=== PATIENT | female | born 1935 | race African-American/Black ===

== ENCOUNTER 2020-08-30 06:48 | Inpatient (IN) | payer MEDICARE, MEDICAID ==
[~2020-08-30] VITALS: Ht 154.9 cm; Wt 56.2 kg
[~2020-08-30 06:48] MED LIST: DEXT15DR5 EACHEYE; METO25TA6 PO; SIMV-43 PO; WARF2.5T83 PO
[2020-08-30 09:52] LABS: BASOPHILS % 0.5 % (0.0-2.0); EOSINOPHILS % 0.4 % (0.0-5.0); HEMATOCRIT. 44.7 % (36.0-48.0); HEMOGLOBIN. 14.8 g/dL (12.0-16.0); LYMPHOCYTES % 11.3 % (20.0-50.0); MEAN CORPUSCULAR VOLUME 84.6 fL (81.0-99.0); MEAN PLATELET VOLUME 9.3 fl (7.4-10.4); MONOCYTES % 5.3 % (2.0-8.0); NEUTROPHILS % 82.5 % (40.0-76.0); PLATELET 217 x1000/uL (130-400); RED BLOOD CELL COUNT 5.29 mill/uL (4.2-5.4); RED CELL DISTRIBUTION WIDTH 15.6 % (11.6-14.6)
[2020-08-30 09:57] LABS: CHLORIDE 96 mEq/L (98-107)
[2020-08-30] MEDS ORDERED: CEFTRIAXONE 1 G PREMIX 50 ML IV ONE (10:15)
[2020-08-30] MEDS ORDERED: SODIUM CHLORIDE 0.9% 1,000 ML IV ONE (10:15)
[2020-08-30] MEDS ORDERED: AZITHROMYCIN 500 MG in DEXT 5% WATER 250 ML IV ONE (10:15)
[2020-08-30] MEDS ORDERED: NITROGLYCERIN OINT 1GM/INCH UDPKT TD ONE (11:00)
[2020-08-30] MEDS ORDERED: FUROSEMIDE 40MG/4ML VIAL IV ONE (11:00)
[2020-08-30] MEDS ORDERED: ACETAMINOPHEN 325MG TABLET PO PRN (13:00)
[2020-08-30] MEDS ORDERED: IPRATROPIUM/ALBUTEROL 0.5-3(2.5)MG/3ML NEB NEB PRN (13:00)
[2020-08-30] MEDS ORDERED: CEFTRIAXONE 1 G PREMIX 50 ML IV SCH (13:00)
[2020-08-30] MEDS ORDERED: DOCUSATE SODIUM 100MG CAPSULE PO PRN (13:00)
[2020-08-30] MEDS ORDERED: CLONIDINE 0.1MG TABLET PO PRN (13:00)
[2020-08-30] MEDS ORDERED: DIPHENHYDRAMINE 50MG/ML VIAL IV PRN (13:00)
[2020-08-30] MEDS ORDERED: NA PHOS,M-B/NA PHOS,DI-BA ENEMA 118ML PR PRN (13:00)
[2020-08-30] MEDS ORDERED: GUAIFENESIN 200MG/10ML SUGAR FREE UDC PO PRN (13:00)
[2020-08-30] MEDS ORDERED: MEDICATION NOT ON FORMULARY EA (Dextran 70/Hypromellose (Artificial Tears Eye Drops) 1 D EACHEYE SCH (13:00)
[2020-08-30] MEDS ORDERED: ONDANSETRON HCL 4MG/2ML INJ IV PRN (13:00)
[2020-08-30] MEDS ORDERED: ACETAMINOPHEN 650MG SUPP PR PRN (13:00)
[2020-08-30] MEDS ORDERED: LORAZEPAM 0.5MG TABLET PO PRN (13:00)
[2020-08-30] MEDS ORDERED: HYDROCODONE/ACETAMINOPHEN 5/325MG TABLET PO PRN (13:00)
[2020-08-30 13:41] LABS: BG BASE EXCESS 2.1 mmol/L (-2.0-2.0); BG CARBOXYHEMOGLOBIN 0.5 % (0.5-1.5); BG DEOXYHEMOGLOBIN 3.5 % (0.0-5.0); BG FRACTION INSPIRED OXYGEN 28; BG HCO3 ACT 28.5 mmol/L (22.0-26.0); BG METHEMOGLOBIN 0.3 % (0.0-1.5); BG OXYGEN SATURATION 96.5 % (92.0-98.5); BG OXYHEMOGLOBIN 95.7 % (94.0-97.0); BG PH 7.357 (7.350-7.450); BG PO2 85.3 mmHg (75.0-100.0); BG SAMPLE SITE RIGHT RADIAL; BG TOTAL HEMOGLOBIN 12.7 g/dL (12.0-18.0); BG VENT MODE NASAL CANNULA
[2020-08-30] MEDS ORDERED: AZITHROMYCIN 500 MG in DEXT 5% WATER 250 ML IV SCH (14:00)
[2020-08-30] MEDS: METOPROLOL TARTRATE 25MG TABLET PO SCH (14:38)
[2020-08-30] MEDS: FAMOTIDINE 20MG/2ML VIAL IV SCH (14:52)
[2020-08-30 15:52] LABS: D-DIMER 0.98 mg/L FEU (<0.50); INR 3.5; PROTHROMBIN TIME 34.1 sec (9.6-11.0)
[2020-08-30 16:00] VITALS: BP 145/83
[2020-08-30 16:59] VITALS: BP_SYST 145; BP_SYST 91; BP_DIAS 58; BP_DIAS 83
[2020-08-30] MEDS: POLYVINYL ALCOHOL OPHTH DROPS 15ML EACHEYE SCH ×2 (17:16→21:14)
[2020-08-30 18:00] VITALS: BP 134/64
[2020-08-30 20:08] VITALS: BP 142/75
[2020-08-30 22:08] VITALS: BP 126/67
[2020-08-30 22:39] LABS: CLARITY URINE CLEAR (CLEAR); COLOR URINE YELLOW (YELLOW); KETONES URINE NEGATIVE (NEGATIVE); LEUKOCYTE ESTERASE URINE TRACE (NEGATIVE); NITRITE URINE NEGATIVE (NEGATIVE); OCCULT BLOOD URINE 1+ (NEGATIVE); PROTEIN URINE NEGATIVE (NEGATIVE); UROBILINOGEN URINE 0.2 E.U./dL (0.2-1.0)
[2020-08-31] VITALS (8 sets, daily range): BP systolic 112–143; BP diastolic 58–96
[2020-08-31 00:51] LABS: CREATINE KINASE MB FRACTION 4.4 ng/mL (0.5-3.6)
[2020-08-31] MEDS: IPRATROPIUM/ALBUTEROL 0.5-3(2.5)MG/3ML NEB HHN SCH ×3 (01:47→20:59)
[2020-08-31 06:34] LABS: BASOPHILS % 0.6 % (0.0-2.0); EOSINOPHILS % 2.1 % (0.0-5.0); HEMATOCRIT. 33.8 % (36.0-48.0); HEMOGLOBIN. 11.2 g/dL (12.0-16.0); INR 3.1; LYMPHOCYTES % 19.8 % (20.0-50.0); MEAN CORPUSCULAR HEMOGLOBIN 27.8 pg (28.0-32.0); MEAN CORPUSCULAR VOLUME 84.1 fL (81.0-99.0); MEAN PLATELET VOLUME 8.8 fl (7.4-10.4); MONOCYTES % 12.4 % (2.0-8.0); NEUTROPHILS % 65.1 % (40.0-76.0); PLATELET 202 x1000/uL (130-400); PROTHROMBIN TIME 30.7 sec (9.6-11.0); RED BLOOD CELL COUNT 4.02 mill/uL (4.2-5.4); RED CELL DISTRIBUTION WIDTH 14.8 % (11.6-14.6)
[2020-08-31 07:17] LABS: CHLORIDE 96 mEq/L (98-107)
[2020-08-31 07:29] LABS: LDL CHOLESTEROL 49 mg/dL (5-100)
[2020-08-31 07:33] LABS: T4 FREE 1.41 ng/dL (0.76-1.46)
[2020-08-31 07:34] LABS: HDL CHOLESTEROL 60 mg/dL (40-59)
[2020-08-31] MEDS ORDERED: MEDICATION NOT ON FORMULARY EA (Simvastatin 20 MG) PO SCH (09:00)
[2020-08-31] MEDS: POLYVINYL ALCOHOL OPHTH DROPS 15ML EACHEYE SCH ×4 (09:14→20:32)
[2020-08-31] MEDS: FAMOTIDINE 20MG/2ML VIAL IV SCH (09:14)
[2020-08-31] MEDS: METOPROLOL TARTRATE 25MG TABLET PO SCH (09:14)
[2020-08-31] MEDS: ATORVASTATIN CALCIUM 10MG TABLET PO SCH (09:14)
[2020-08-31] MEDS: ASPIRIN 81MG EC TABLET PO SCH (09:14)
[2020-08-31] MEDS ORDERED: FUROSEMIDE 20MG/2ML VIAL IVP NR (09:45)
[2020-08-31] MEDS ORDERED: LIDOCAINE HCL 1% 20ML VIAL (Pyxis) INJ ONE (11:05)
[2020-08-31] MEDS ORDERED: SODIUM BICARBONATE 4% (2.4MEQ) 5ML VIAL IV ONE (11:05)
[2020-08-31] MEDS: AZITHROMYCIN 500 MG in DEXT 5% WATER 250 ML IV SCH (13:25)
[2020-08-31] MEDS ORDERED: IOHEXOL-350 100 ML BOTTLE ONE (14:00)
[2020-08-31 14:58] LABS: BG BASE EXCESS 0.9 mmol/L (-2.0-2.0); BG CARBOXYHEMOGLOBIN 0.3 % (0.5-1.5); BG HCO3 ACT 26.8 mmol/L (22.0-26.0); BG METHEMOGLOBIN 0.3 % (0.0-1.5); BG OXYHEMOGLOBIN 96.4 % (94.0-97.0); BG PCO2 48.6 mmHg (35.0-45.0); BG SAMPLE SITE RIGHT RADIAL; BG VENT MODE NASAL CANNULA
[2020-08-31] MEDS ORDERED: FUROSEMIDE 40MG/4ML VIAL IVP NR ×2 (16:15→19:00)
[2020-08-31 16:22] LABS: CREATINE KINASE MB FRACTION 4.6 ng/mL (0.5-3.6)
[2020-08-31] MEDS: CEFTRIAXONE 1,000 MG in DEXTROSE 5% WATER 50 ML IV SCH (16:24)
[2020-08-31] MEDS: METHYLPREDNISOLONE SOD SUCC 40 MG/ML VIAL IV SCH ×2 (16:24→21:28)
[2020-08-31] MEDS: MAGNESIUM/ALUMINUM HYDROXIDE/SIMETHICONE 30ML UDC PO PRN (20:32)
[2020-09-01] VITALS: BP 140/69
[2020-09-01 00:16] LABS: CREATINE KINASE MB FRACTION 4.4 ng/mL (0.5-3.6)
[2020-09-01] MEDS: TEMAZEPAM 15MG CAPSULE PO PRN ×2 (00:19→21:53)
[2020-09-01] MEDS: IPRATROPIUM/ALBUTEROL 0.5-3(2.5)MG/3ML NEB HHN SCH (01:00)
[2020-09-01 04:00] VITALS: BP 146/78
[2020-09-01] MEDS: METHYLPREDNISOLONE SOD SUCC 40 MG/ML VIAL IV SCH ×3 (05:23→21:54)
[2020-09-01 08:00] VITALS: BP 143/86
[2020-09-01] MEDS ORDERED: ALBUTEROL 6.7GM HFA INHALER ORI SCH (08:00)
[2020-09-01 08:15] LABS: BASOPHILS % 0.1 % (0.0-2.0); HEMATOCRIT. 37.3 % (36.0-48.0); HEMOGLOBIN. 12.5 g/dL (12.0-16.0); LYMPHOCYTES % 9.2 % (20.0-50.0); MEAN CORPUSCULAR HEMOGLOBIN 28.1 pg (28.0-32.0); MEAN CORPUSCULAR VOLUME 83.7 fL (81.0-99.0); MEAN PLATELET VOLUME 8.6 fl (7.4-10.4); MONOCYTES % 1.7 % (2.0-8.0); PLATELET 172 x1000/uL (130-400); RED BLOOD CELL COUNT 4.46 mill/uL (4.2-5.4)
[2020-09-01 08:20] LABS: INR 1.9; PROTHROMBIN TIME 19.8 sec (9.6-11.0)
[2020-09-01 08:28] LABS: CHLORIDE 94 mEq/L (98-107)
[2020-09-01] MEDS: FUROSEMIDE 40MG/4ML VIAL IVP SCH (09:10)
[2020-09-01] MEDS: FAMOTIDINE 20MG/2ML VIAL IV SCH (09:11)
[2020-09-01] MEDS: METOPROLOL TARTRATE 25MG TABLET PO SCH (09:11)
[2020-09-01] MEDS: ASPIRIN 81MG EC TABLET PO SCH (09:11)
[2020-09-01] MEDS: ATORVASTATIN CALCIUM 10MG TABLET PO SCH (09:11)
[2020-09-01] MEDS: POLYVINYL ALCOHOL OPHTH DROPS 15ML EACHEYE SCH ×4 (09:12→21:53)
[2020-09-01] MEDS ORDERED: DILTIAZEM HCL 5MG/ML 5ML VIAL IV NR (11:30)
[2020-09-01 11:53] VITALS: BP 149/68
[2020-09-01 12:11] LABS: BG CARBOXYHEMOGLOBIN 0.6 % (0.5-1.5); BG DEOXYHEMOGLOBIN 4.1 % (0.0-5.0); BG FRACTION INSPIRED OXYGEN 21; BG METHEMOGLOBIN 0.2 % (0.0-1.5); BG OXYGEN SATURATION 95.9 % (92.0-98.5); BG OXYHEMOGLOBIN 95.1 % (94.0-97.0); BG PCO2 47.2 mmHg (35.0-45.0); BG PH 7.462 (7.350-7.450); BG PO2 77.7 mmHg (75.0-100.0); BG SAMPLE SITE RIGHT RADIAL; BG VENT MODE ROOM AIR
[2020-09-01] MEDS ORDERED: DILTIAZEM HCL 5MG/ML 5ML VIAL IV PRN (12:30)
[2020-09-01] MEDS: CEFTRIAXONE 1,000 MG in DEXTROSE 5% WATER 50 ML IV SCH (15:30)
[2020-09-01] MEDS: AZITHROMYCIN 500 MG in DEXT 5% WATER 250 ML IV SCH (15:30)
[2020-09-01 16:00] VITALS: BP 109/53
[2020-09-01] MEDS ORDERED: WARFARIN SODIUM 5MG TABLET PO NR (18:00)
[2020-09-01] MEDS: MAGNESIUM/ALUMINUM HYDROXIDE/SIMETHICONE 30ML UDC PO PRN (18:33)
[2020-09-01 20:00] VITALS: BP 120/67
[2020-09-01] MEDS: METOPROLOL TARTRATE 50MG TABLET PO SCH (21:54)
[2020-09-02] VITALS: BP 128/70
[2020-09-02 04:00] VITALS: BP 134/65
[2020-09-02] MEDS: METHYLPREDNISOLONE SOD SUCC 40 MG/ML VIAL IV SCH ×3 (05:37→21:07)
[2020-09-02 08:00] VITALS: BP 138/77
[2020-09-02 08:13] LABS: HEMATOCRIT. 45.4 % (36.0-48.0); MEAN CORPUSCULAR VOLUME 84.9 fL (81.0-99.0); MEAN PLATELET VOLUME 9.6 fl (7.4-10.4); PLATELET 191 x1000/uL (130-400); RED BLOOD CELL COUNT 5.34 mill/uL (4.2-5.4); RED CELL DISTRIBUTION WIDTH 15.3 % (11.6-14.6)
[2020-09-02] MEDS: IPRATROPIUM/ALBUTEROL 0.5-3(2.5)MG/3ML NEB HHN SCH ×2 (08:17→13:13)
[2020-09-02 08:34] LABS: CHLORIDE 91 mEq/L (98-107)
[2020-09-02 08:38] LABS: INR 1.7; PROTHROMBIN TIME 17.7 sec (9.6-11.0)
[2020-09-02] MEDS: AZITHROMYCIN 500 MG TABLET PO SCH (09:58)
[2020-09-02] MEDS: ATORVASTATIN CALCIUM 10MG TABLET PO SCH (09:58)
[2020-09-02] MEDS: METOPROLOL TARTRATE 50MG TABLET PO SCH (09:59)
[2020-09-02] MEDS: POLYVINYL ALCOHOL OPHTH DROPS 15ML EACHEYE SCH ×4 (10:00→21:16)
[2020-09-02] MEDS: FUROSEMIDE 40MG/4ML VIAL IVP SCH (10:00)
[2020-09-02] MEDS: FAMOTIDINE 20MG/2ML VIAL IV SCH (10:00)
[2020-09-02] MEDS: ASPIRIN 81MG EC TABLET PO SCH (10:00)
[2020-09-02 12:00] VITALS: BP 111/63
[2020-09-02] MEDS ORDERED: ENOXAPARIN 30MG/0.3ML SYR SUBCUT NR (13:45)
[2020-09-02] MEDS ORDERED: IPRATROPIUM/ALBUTEROL 0.5-3(2.5)MG/3ML NEB HHN PRN (13:45)
[2020-09-02] MEDS: CEFTRIAXONE 1,000 MG in DEXTROSE 5% WATER 50 ML IV SCH (15:37)
[2020-09-02 16:00] VITALS: BP 131/56
[2020-09-02] MEDS: DILTIAZEM HCL 30MG TABLET PO SCH (17:47)
[2020-09-02] MEDS ORDERED: WARFARIN SODIUM 5MG TABLET PO SCH (18:00)
[2020-09-02] MEDS ORDERED: WARFARIN SODIUM 7.5MG TABLET PO NR ×2 (18:00→20:00)
[2020-09-02 19:17] LABS: PLATELET ESTIMATE NORMAL
[2020-09-02 20:00] VITALS: BP 102/53
[2020-09-02] MEDS: METOPROLOL TARTRATE 25MG TABLET PO SCH (20:59)
[2020-09-03] VITALS: BP 125/46
[2020-09-03 04:00] VITALS: BP 146/75
[2020-09-03] MEDS: METHYLPREDNISOLONE SOD SUCC 40 MG/ML VIAL IV SCH ×3 (06:04→21:59)
[2020-09-03 08:00] VITALS: BP 135/89
[2020-09-03] MEDS: METOPROLOL TARTRATE 25MG TABLET PO SCH ×2 (09:00→09:24)
[2020-09-03] MEDS: POLYVINYL ALCOHOL OPHTH DROPS 15ML EACHEYE SCH ×4 (09:22→21:59)
[2020-09-03] MEDS: FAMOTIDINE 20MG/2ML VIAL IV SCH (09:22)
[2020-09-03] MEDS: DILTIAZEM HCL 30MG TABLET PO SCH ×2 (09:23→17:52)
[2020-09-03] MEDS: FUROSEMIDE 40MG/4ML VIAL IVP SCH (09:23)
[2020-09-03] MEDS: ASPIRIN 81MG EC TABLET PO SCH (09:24)
[2020-09-03] MEDS: AZITHROMYCIN 500 MG TABLET PO SCH (09:24)
[2020-09-03] MEDS: ATORVASTATIN CALCIUM 10MG TABLET PO SCH (09:24)
[2020-09-03 09:39] LABS: INR 2.7; PROTHROMBIN TIME 26.6 sec (9.6-11.0)
[2020-09-03 12:23] VITALS: BP 102/58
[2020-09-03 13:59] LABS: MEAN CORPUSCULAR HEMOGLOBIN 28.2 pg (28.0-32.0); MEAN CORPUSCULAR VOLUME 84.5 fL (81.0-99.0); MEAN PLATELET VOLUME 8.9 fl (7.4-10.4); PLATELET 242 x1000/uL (130-400); RED BLOOD CELL COUNT 4.42 mill/uL (4.2-5.4)
[2020-09-03 14:00] LABS: CHLORIDE 92 mEq/L (98-107)
[2020-09-03 14:01] LABS: HEMOGLOBIN. 12.4 g/dL (12.0-16.0)
[2020-09-03 14:02] LABS: HEMATOCRIT. 37.3 % (36.0-48.0)
[2020-09-03 14:25] LABS: PLATELET ESTIMATE NORMAL
[2020-09-03] MEDS ORDERED: POTASSIUM CHLORIDE 20MEQ TABLET SR PO NR (14:30)
[2020-09-03] MEDS: CEFTRIAXONE 1,000 MG in DEXTROSE 5% WATER 50 ML IV SCH ×2 (15:12→15:53)
[2020-09-03] MEDS: NEBIVOLOL HCL 5 MG TABLET PO SCH ×2 (15:12→21:59)
[2020-09-03 16:00] VITALS: BP 130/55
[2020-09-03] MEDS ORDERED: WARFARIN SODIUM 4MG TABLET PO NR (18:00)
[2020-09-03 20:00] VITALS: BP 123/47
[2020-09-03 21:10] LABS: CLARITY URINE CLEAR (CLEAR); COLOR URINE YELLOW (YELLOW); KETONES URINE NEGATIVE (NEGATIVE); LEUKOCYTE ESTERASE URINE TRACE (NEGATIVE); NITRITE URINE NEGATIVE (NEGATIVE); OCCULT BLOOD URINE NEGATIVE (NEGATIVE); PROTEIN URINE NEGATIVE (NEGATIVE); SPECIFIC GRAVITY URINE 1.009 (1.005-1.030); UROBILINOGEN URINE 0.2 E.U./dL (0.2-1.0)
[2020-09-04] VITALS: BP 124/49
[2020-09-04 04:00] VITALS: BP 117/51
[2020-09-04 07:12] LABS: PROTHROMBIN TIME 44.9 sec (9.6-11.0)
[2020-09-04 07:16] LABS: CHLORIDE 96 mEq/L (98-107)
[2020-09-04 07:17] LABS: INR 4.6
[2020-09-04 07:32] LABS: BASOPHILS % 0.1 % (0.0-2.0); HEMATOCRIT. 34.5 % (36.0-48.0); HEMOGLOBIN. 11.5 g/dL (12.0-16.0); LYMPHOCYTES % 7.4 % (20.0-50.0); MEAN CORPUSCULAR VOLUME 84.3 fL (81.0-99.0); MEAN PLATELET VOLUME 9.1 fl (7.4-10.4); MONOCYTES % 3.8 % (2.0-8.0); NEUTROPHILS % 88.7 % (40.0-76.0); PLATELET 204 x1000/uL (130-400); RED BLOOD CELL COUNT 4.09 mill/uL (4.2-5.4); RED CELL DISTRIBUTION WIDTH 14.9 % (11.6-14.6)
[2020-09-04 08:00] VITALS: BP 147/75
[2020-09-04] MEDS: FUROSEMIDE 40MG/4ML VIAL IVP SCH (10:27)
[2020-09-04] MEDS: FAMOTIDINE 20MG/2ML VIAL IV SCH (10:27)
[2020-09-04] MEDS: METHYLPREDNISOLONE SOD SUCC 40 MG/ML VIAL IV SCH ×2 (10:28→21:51)
[2020-09-04] MEDS: NEBIVOLOL HCL 5 MG TABLET PO SCH ×2 (10:29→21:51)
[2020-09-04] MEDS: ATORVASTATIN CALCIUM 10MG TABLET PO SCH (10:32)
[2020-09-04] MEDS: AZITHROMYCIN 500 MG TABLET PO SCH (10:32)
[2020-09-04] MEDS: DILTIAZEM HCL 30MG TABLET PO SCH (10:33)
[2020-09-04] MEDS: ASPIRIN 81MG EC TABLET PO SCH (10:33)
[2020-09-04] MEDS: POLYVINYL ALCOHOL OPHTH DROPS 15ML EACHEYE SCH ×4 (10:35→21:52)
[2020-09-04 12:00] VITALS: BP 123/73
[2020-09-04] MEDS: CEFTRIAXONE 1,000 MG in DEXTROSE 5% WATER 50 ML IV SCH (15:49)
[2020-09-04 16:00] VITALS: BP 140/76
[2020-09-04] MEDS: DILTIAZEM HCL 90MG CAPSULE SR 12HR PO SCH (16:05)
[2020-09-04 20:30] VITALS: BP 124/57
[2020-09-04] MEDS: ACETYLCYSTEINE 100MG/ML 10% VIAL 4ML INH SCH (21:46)
[2020-09-04] MEDS: IPRATROPIUM/ALBUTEROL 0.5-3(2.5)MG/3ML NEB HHN SCH (21:46)
[2020-09-05 00:42] VITALS: BP 112/48
[2020-09-05] MEDS: IPRATROPIUM/ALBUTEROL 0.5-3(2.5)MG/3ML NEB HHN SCH ×2 (01:19→08:39)
[2020-09-05 04:30] VITALS: BP 126/57
[2020-09-05 06:39] LABS: HEMATOCRIT. 34.4 % (36.0-48.0); HEMOGLOBIN. 11.4 g/dL (12.0-16.0); MEAN CORPUSCULAR HEMOGLOBIN 27.7 pg (28.0-32.0); MEAN CORPUSCULAR VOLUME 83.7 fL (81.0-99.0); MEAN PLATELET VOLUME 8.9 fl (7.4-10.4); PLATELET 211 x1000/uL (130-400); RED BLOOD CELL COUNT 4.11 mill/uL (4.2-5.4); RED CELL DISTRIBUTION WIDTH 15.1 % (11.6-14.6)
[2020-09-05 06:43] LABS: PROTHROMBIN TIME 41.8 sec (9.6-11.0)
[2020-09-05 06:55] LABS: CHLORIDE 94 mEq/L (98-107)
[2020-09-05 06:59] LABS: INR 4.3
[2020-09-05 08:00] VITALS: BP 118/59
[2020-09-05] MEDS: ACETYLCYSTEINE 100MG/ML 10% VIAL 4ML INH SCH (08:36)
[2020-09-05] MEDS: ASPIRIN 81MG EC TABLET PO SCH (09:42)
[2020-09-05] MEDS: NEBIVOLOL HCL 5 MG TABLET PO SCH ×2 (09:43→21:00)
[2020-09-05] MEDS: METHYLPREDNISOLONE SOD SUCC 40 MG/ML VIAL IV SCH ×2 (09:44→23:48)
[2020-09-05] MEDS: DILTIAZEM HCL 90MG CAPSULE SR 12HR PO SCH ×2 (09:44→21:00)
[2020-09-05] MEDS: ATORVASTATIN CALCIUM 10MG TABLET PO SCH (09:44)
[2020-09-05] MEDS: FAMOTIDINE 20MG/2ML VIAL IV SCH (09:44)
[2020-09-05] MEDS: FUROSEMIDE 40MG/4ML VIAL IVP SCH (09:44)
[2020-09-05] MEDS: POLYVINYL ALCOHOL OPHTH DROPS 15ML EACHEYE SCH ×4 (09:59→21:00)
[2020-09-05] MEDS ORDERED: DILTIAZEM HCL 5MG/ML 5ML VIAL IV NR (11:30)
[2020-09-05 12:00] VITALS: BP 140/76
[2020-09-05 13:26] LABS: PLATELET ESTIMATE NORMAL
[2020-09-05] MEDS ORDERED: ACETYLCYSTEINE 100MG/ML 10% VIAL 4ML INH PRN (14:00)
[2020-09-05 16:00] VITALS: BP 123/55
[2020-09-05 20:00] VITALS: BP 130/63
[2020-09-05 20:34] LABS: INR 3.6
[2020-09-06] VITALS: BP 122/59
[2020-09-06 04:00] VITALS: BP 109/68
[2020-09-06 08:00] VITALS: BP 158/87
[2020-09-06] MEDS: DILTIAZEM HCL 90MG CAPSULE SR 12HR PO SCH (10:17)
[2020-09-06] MEDS: POLYVINYL ALCOHOL OPHTH DROPS 15ML EACHEYE SCH ×2 (10:17→14:48)
[2020-09-06] MEDS: FAMOTIDINE 20MG/2ML VIAL IV SCH (10:18)
[2020-09-06] MEDS: METHYLPREDNISOLONE SOD SUCC 40 MG/ML VIAL IV SCH (10:18)
[2020-09-06] MEDS: FUROSEMIDE 40MG/4ML VIAL IVP SCH (10:18)
[2020-09-06] MEDS: ATORVASTATIN CALCIUM 10MG TABLET PO SCH (10:18)
[2020-09-06] MEDS: ASPIRIN 81MG EC TABLET PO SCH (10:18)
[2020-09-06] MEDS: NEBIVOLOL HCL 5 MG TABLET PO SCH (10:19)
[2020-09-06 11:50] LABS: HEMATOCRIT. 36.3 % (36.0-48.0); HEMOGLOBIN. 11.6 g/dL (12.0-16.0); MEAN CORPUSCULAR HEMOGLOBIN 27.2 pg (28.0-32.0); MEAN PLATELET VOLUME 8.7 fl (7.4-10.4); PLATELET 227 x1000/uL (130-400); RED BLOOD CELL COUNT 4.27 mill/uL (4.2-5.4); RED CELL DISTRIBUTION WIDTH 15.1 % (11.6-14.6)
[2020-09-06 12:00] VITALS: BP 132/68
[2020-09-06 12:02] LABS: INR 2.5; PROTHROMBIN TIME 25.5 sec (9.6-11.0)
[2020-09-06 12:11] LABS: CHLORIDE 100 mEq/L (98-107)
[2020-09-06 12:14] LABS: PLATELET ESTIMATE NORMAL
[2020-09-06] MEDS ORDERED: NEBI2.5T2 PO (12:19)
[2020-09-06] MEDS ORDERED: FAMO-135 PO (12:19)
[2020-09-06] MEDS ORDERED: CARSR90 MT (12:19)
[2020-09-06] MEDS ORDERED: POTASSIUM CHLORIDE 20MEQ TABLET SR PO NR (12:30)
[2020-09-06 16:00] VITALS: BP 149/87
[2020-09-06] MEDS ORDERED: WARFARIN SODIUM 5MG TABLET PO NR (18:00)
[2020-09-06 18:31] VITALS: BP 149/87
[2020-09-07] MEDS ORDERED: METHYLPREDNISOLONE SOD SUCC 40 MG/ML VIAL IV SCH (09:00)
== END 2020-09-06 19:55 | disposition home or self-care (01) | DRG 291 ==
LOC: ER 06:48 → 3WST 11:00 → EDBEDREQ 11:04 → ENRESERV 15:18 → 3WST 16:39 → 7EST 08-31 12:19 → 5WST 09-01 12:21 → 8WST 09-05 17:14
PROVIDERS: ADMIT Internal Medicine; ATTEND Internal Medicine
PROC: 02HV33Z Insertion of Infusion Device into Superior Vena Cava, Percutaneous Approach (ICD-10-PCS; principal; 2020-08-31)
PROC: B5181ZA Fluoroscopy of Superior Vena Cava using Low Osmolar Contrast, Guidance (ICD-10-PCS; 2020-08-31)
PROC: B548ZZA Ultrasonography of Superior Vena Cava, Guidance (ICD-10-PCS; 2020-08-31)
DX: I11.0 Hypertensive heart disease with heart failure (principal); J18.9 Pneumonia, unspecified organism; J96.91 Respiratory failure, unspecified with hypoxia; I48.20 Chronic atrial fibrillation, unspecified; E87.1 Hypo-osmolality and hyponatremia; I31.3 Pericardial effusion (noninflammatory); D68.69 Other thrombophilia; D68.9 Coagulation defect, unspecified; J91.8 Pleural effusion in other conditions classified elsewhere; I50.33 Acute on chronic diastolic (congestive) heart failure; J45.909 Unspecified asthma, uncomplicated; Z20.828 Contact with and (suspected) exposure to other viral communicable diseases; E78.00 Pure hypercholesterolemia, unspecified; E78.5 Hyperlipidemia, unspecified; I07.1 Rheumatic tricuspid insufficiency; M48.02 Spinal stenosis, cervical region; Z79.899 Other long term (current) drug therapy; Z79.01 Long term (current) use of anticoagulants; Z87.898 Personal history of other specified conditions
CPT/HCPCS: 36415; 36573; 36600; 71045; 71275; 80048; 80053; 80061; 81003; 82375; 82550; 82553; 82805; 83735; 83880; 84439; 84443; 84484; 85025; 85379; 86850; 86900; 87635; 93005; 93306; 93970; 97162; 99291; C1725; J0456; J0696; J1200; J1650; J1940; J2405; J2920; J3490; J7030; J7040; J7060; J7608; Q9967